=== PATIENT | male | born 1960 | race African-American/Black ===

== ENCOUNTER 2016-11-10 14:50 | Inpatient (IN) | payer SELFPAY ==
[~2016-11-10] VITALS: Ht 172.7 cm; Wt 56.7 kg
[2016-11-10 16:03] LABS: BASO % 0 % (0-3); EOS % 2 % (0-3); HEMATOCRIT 42.5 % (39.0-53.0); HEMOGLOBIN 13.9 g/dL (13.0-17.5); LYMPH # 0.7 x10^3/uL (1.0-4.8); LYMPH % 9 % (24-48); MEAN CORPUSCULAR HEMOGLOBIN 27 pg (25-35); MEAN CORPUSCULAR HGB CONC 33 g/dL (31-37); MEAN CORPUSCULAR VOLUME 82 fL (79-100); MONO % 14 % (0-9); NEUT % 75 % (31-73); PLATELET COUNT 172 x10^3/uL (140-400); RED BLOOD COUNT 5.17 x10^6/uL (4.30-5.70); RED CELL DISTRIBUTION WIDTH 13.2 % (11.5-14.5); WHITE BLOOD COUNT 7.9 x10^3/uL (4.0-11.0)
[2016-11-10] MEDS ORDERED: IV NORMAL SALINE 1000ML BAG 1,000 ML IV ONE (16:15)
[2016-11-10 16:34] LABS: CALCIUM 9.5 mg/dL (8.5-10.1); CREATININE 1.9 mg/dL (0.7-1.3); GFR 44.3; POTASSIUM 4.4 mmol/L (3.5-5.1)
[2016-11-10 16:40] LABS: ALBUMIN 3.6 g/dL (3.4-5.0); ALBUMIN/GLOBULIN RATIO 0.8 (1.0-1.7); TOTAL BILIRUBIN 0.4 mg/dL (0.2-1.0)
[2016-11-10] MEDS ORDERED: FENTANYL PF 100 MCG/2 ML VIAL. IV ONE (16:45)
--- NOTE | 2016-11-10 16:52 | PHYS DOC ---
Past Medical History Past Medical History: Diabetes-Type II, Hypertension, Kidney Stone, Pancreatitis Additional Past Medical Histor: IDDM Past Surgical History: No Surgical History Additional Information: PT REPORTS HE SMOKES APPROXIMATELY 3 CIGARETTES PER DAY. Alcohol Use: Sober Additional Information: PT REPORTS HE HAS BEEN SOBER FOR APPROXIMATELY 10 DAYS. Drug Use: None Adult General Chief Complaint Chief Complaint: MECHANICAL FALL HPI HPI 56-year-old homeless male was admitted a couple weeks ago to [facility] with acute pancreatitis. He spent several days in the hospital getting his pancreatitis better and was discharged home. Today he developed abdominal pain cramping and profuse diarrhea. He states the diarrhea was bad enough that he became lightheaded and fell in the restroom. He states he injured his right shoulder at that time. He complains now of mid abdominal discomfort similar to that when he had his pancreatitis. He denies any fever chills or sweats. He has not had any chest pain or palpitations. He has not felt short of breath. He didn 't hit his head has no headache no lateralizing neurologic weakness. [] Review of Systems Review of Systems Constitutional: Denies fever or chills [] Eyes: Denies change in visual acuity, redness, or eye pain [] HENT: Denies nasal congestion or sore throat [] Respiratory: Denies cough or shortness of breath [] Cardiovascular: No additional information not addressed in HPI [] GI: Per history of present illness [] : Denies dysuria or hematuria [] Musculoskeletal: Right shoulder pain] Integument: Denies rash or skin lesions [] Neurologic: Denies headache, focal weakness or sensory changes [] Endocrine: Denies polyuria or polydipsia [] Current Medications Current Medications Current Medications Medications (Trade) Dose Ordered Sig/Renee Start Time Stop Time Status Last Admin Dose Admin Fentanyl Citrate (Fentanyl 2ml Vial) 50 mcg 1X ONCE 11/10/16 16:45 11/10/16 16:46 DC 11/10/16 16:57 50 MCG Sodium Chloride (Iv Sodium Chloride 0.9% 1000ml Bag) 1,000 ml @ 1,000 mls/hr 1X ONCE 11/10/16 16:15 11/10/16 17:14 DC 11/10/16 16:38 1,000 MLS/HR Allergies Allergies Allergies Coded Allergies Type Severity Reaction Last Updated Verified No Known Drug Allergies 11/10/16 No Physical Exam Physical Exam Constitutional: Well developed, well nourished, no acute distress, non-toxic appearance. [] HENT: Normocephalic, atraumatic, bilateral external ears normal, oropharynx moist, no oral exudates, nose normal. [] Eyes: PERRLA, EOMI, conjunctiva normal, no discharge. [] Neck: Normal range of motion, no tenderness, supple, no stridor. [] Cardiovascular:Heart rate regular rhythm, no murmur [] Lungs & Thorax: Bilateral breath sounds clear to auscultation [] Abdomen: Bowel sounds normal, soft, no tenderness, no masses, no pulsatile masses. [] Skin: Warm, dry, no erythema, no rash. [] Back: No tenderness, no CVA tenderness. [] Extremities: No tenderness, no cyanosis, no clubbing, ROM intact, no edema. [] Neurologic: Alert and oriented X 3, normal motor function, normal sensory function, no focal deficits noted. [] Psychologic: Affect normal, judgement normal, mood normal. [] Current Patient Data Vital Signs Vital Signs Date Time Temp Pulse Resp B/P Pulse Ox O2 Delivery O2 Flow Rate FiO2 11/10/16 16:57 Room Air 11/10/16 16:19 85 12 94/60 96 11/10/16 15:17 97.8 97.8 Lab Values Laboratory Tests Test 11/10/16 15:15 11/10/16 15:40 11/10/16 17:47 Stool Occult Blood Positive (NEG) White Blood Count 7.9x10^3/uL (4.0-11.0) Red Blood Count 5.17x10^6/uL (4.30-5.70) Hemoglobin 13.9g/dL (13.0-17.5) Hematocrit 42.5% (39.0-53.0) Mean Corpuscular Volume 82fL (79-100) Mean Corpuscular Hemoglobin 27pg (25-35) Mean Corpuscular Hemoglobin Concent 33g/dL (31-37) Red Cell Distribution Width 13.2% (11.5-14.5) Platelet Count 172x10^3/uL (140-400) Neutrophils (%) (Auto) 75% (31-73) H Lymphocytes (%) (Auto) 9% (24-48) L Monocytes (%) (Auto) 14% (0-9) H Eosinophils (%) (Auto) 2% (0-3) Basophils (%) (Auto) 0% (0-3) Neutrophils # (Auto) 5.9x10^3uL (1.8-7.7) Lymphocytes # (Auto) 0.7x10^3/uL (1.0-4.8) L Monocytes # (Auto) 1.1x10^3/uL (0.0-1.1) Eosinophils # (Auto) 0.1x10^3/uL (0.0-0.7) Basophils # (Auto) 0.0x10^3/uL (0.0-0.2) Sodium Level 139mmol/L (136-145) Potassium Level 4.4mmol/L (3.5-5.1) Chloride Level 102mmol/L (98-107) Carbon Dioxide Level 24mmol/L (21-32) Anion Gap 13 (6-14) Blood Urea Nitrogen 28mg/dL (8-26) H Creatinine 1.9mg/dL (0.7-1.3) H Estimated GFR (Cockcroft-Gault) 44.3 BUN/Creatinine Ratio 15 (6-20) Glucose Level 299mg/dL (70-99) H Calcium Level 9.5mg/dL (8.5-10.1) Total Bilirubin 0.4mg/dL (0.2-1.0) Aspartate Amino Transferase (AST) 41U/L (15-37) H Alanine Aminotransferase (ALT) 70U/L (16-63) H Alkaline Phosphatase 102U/L (46-116) Total Protein 8.0g/dL (6.4-8.2) Albumin 3.6g/dL (3.4-5.0) Albumin/Globulin Ratio 0.8 (1.0-1.7) L Lipase 97U/L (73-393) Urine Collection Type U cath Urine Color Yellow Urine Clarity Clear Urine pH 5.0 Urine Specific [place] 1.025 Urine Protein Negativemg/dL (NEG-TRACE) Urine Glucose (UA) >=1000mg/dL (NEG) Urine Ketones (Stick) Negativemg/dL (NEG) Urine Blood Negative (NEG) Urine Nitrite Negative (NEG) Urine Bilirubin Negative (NEG) Urine Urobilinogen Dipstick 0.2mg/dL (0.2 mg/dL) Urine Leukocyte Esterase Negative (NEG) Urine RBC 0/HPF (0-2) Urine WBC 0/HPF (0-4) Urine Squamous Epithelial Cells Occ/LPF Urine Transitional Epithelial Cells Occ/LPF Urine Bacteria 0/HPF (0-FEW) Urine Hyaline Casts Moderate/HPF Urine Mucus Mod/LPF Laboratory Tests 11/10/16 15:40 Laboratory Tests 11/10/16 15:40 EKG EKG [] Radiology/Procedures Radiology/Procedures [] Course & Med Decision Making Course & Med Decision Making Pertinent Labs and Imaging studies reviewed. (See chart for details) [ED course: Evaluation reveals a 56-year-old male who appears acutely ill. Initially his blood pressure was in the 80s systolic and he felt lightheaded. He was given IV fluids and pain medicine during her stay in the [facility] from which did help his blood pressure improved. He had a large malodorous diarrhea bowel movement. Dragon Disclaimer Dragon Disclaimer This electronic medical record was generated, in whole or in part, using a voice recognition dictation system. Departure Departure Impression: Primary Impression: Diarrhea Additional Impression: Renal insufficiency Disposition: ADMITTED INPATIENT Admitting Physician: Other (Reusch) Condition: IMPROVED Referrals: NO PCP (PCP) Problem Qualifiers Primary Impression: Diarrhea Diarrhea type: presumed infectious Qualified Code: A09 - Infectious gastroenteritis and colitis, unspecified LUIS DIAMOND DO Nov 10, 2016 16:52
--- NOTE | 2016-11-10 17:43 | RAD ---
PROCEDURE CT abdomen and pelvis without intravenous contrast. HISTORY Generalized abdominal pain, history of kidney stone. TECHNIQUE Helical CT of the abdomen and pelvis was performed without intravenous or oral contrast. Exposure: One or more of the following individualized dose reduction techniques were utilized for this examination: 1. Automated exposure control. 2. Adjustment of the mA and/or kV according to patient size. 3. Use of iterative reconstruction technique. COMPARISON None. FINDINGS Evaluation of solid organs is limited by lack of intravenous contrast. Evaluation of enteric structures may be limited by lack of oral contrast. Images of lower chest demonstrate mild bronchiectasis in the right lower lobe. Calcified hepatic granulomata are present. Spleen and bilateral adrenal glands are unremarkable. Gallbladder is unremarkable. Pancreas demonstrates areas of coarse calcifications, compatible with changes of chronic pancreatitis. No acute pancreatitis is identified. Bilateral kidneys and ureters are free of stone or obstruction. Urinary bladder wall may be mildly thickened measuring 5 millimeters in thickness. Aortic atherosclerosis is seen. No bowel obstruction or inflammation is identified. Appendix is without inflammation. No free air for free fluid is seen in the abdomen or pelvis. Degenerative changes are present in spine. IMPRESSION 1. No evidence urinary stone. No acute inflammatory process identified in the abdomen. 2. Question mild wall thickening of the urinary bladder, nonspecific. Correlate for any symptoms of cystitis. 3. Mild right lower lobe bronchiectasis. Electronically signed by: Jarek Jacobs MD (Nov 10, 2016 17:41:59)
[2016-11-10 17:50] LABS: NEG OBC FOB NEG; POS OBC FOB POS
[2016-11-10 18:06] LABS: BILIRUBIN,URINE NEGATIVE (NEG); GLUCOSE,URINE >=1000 mg/dL (NEG); NITRITE,URINE NEGATIVE (NEG); PROTEIN,URINE NEGATIVE (NEG-TRACE); UROBILINOGEN,URINE 0.2 mg/dL (0.2 mg/dL)
[2016-11-10 18:16] LABS: RBC,URINE 0 /HPF (0-2); WBC,URINE 0 /HPF (0-4)
[2016-11-10 18:17] LABS: BACTERIA,URINE 0 /HPF (0-FEW); SQUAMOUS EPITHELIAL CELL,UR OCC /LPF
[2016-11-10] MEDS ORDERED: ACETAMINOPHEN 325 MG TABLET. PO PRN (18:45)
[2016-11-10] MEDS ORDERED: ONDANSETRON PF 4 MG/2 ML VIAL. IV PRN (18:45)
[2016-11-10 20:28] VITALS: BP 110/72
[2016-11-10] MEDS ORDERED: INSU100C4 SQ (20:48)
[2016-11-10] MEDS ORDERED: INSU100V13 SQ (20:48)
[2016-11-10] MEDS: FENTANYL PF 100 MCG/2 ML VIAL. IV PRN (22:59)
[2016-11-10] MEDS: IV NORMAL SALINE 1000ML BAG 1,000 ML IV SCH (22:59)
[2016-11-10 23:06] VITALS: BP 124/75
[2016-11-10] MEDS ORDERED: DEXTROSE 50% 25 GM / 50ML DISP.SYRIN. IV PRN (23:45)
--- NOTE | 2016-11-11 01:30 | HP ---
ADMIT DATE: 11/10/2016 CHIEF COMPLAINT: Right-sided abdominal pain. HISTORY OF PRESENT ILLNESS: The patient is a 56-year-old -[place] gentleman with a history of alcoholism and recent admission for pancreatitis at [facility]. He had been discharged to the [facility] in [facility] and now presents with right-sided abdominal pain. He thinks this is same diagnosis, although pain is completely different. He relates that pain is on the right side going through to his back and radiating to his shoulder. He states he actually has a history of kidney stones also on the right. He was not aware that this can recur. PAST MEDICAL HISTORY: Alcoholism, pancreatitis, recent hypertension, diabetes. FAMILY HISTORY: Positive for ETOH as well as hypertension. SOCIAL HISTORY: Currently living at the [facility], smokes 2 cigarettes a day, has once again quit alcohol since his recent bout of pancreatitis. Denies any other drugs. ALLERGIES: No known drug allergies. HOME MEDICATIONS: Reconciled with MAR. REVIEW OF SYSTEMS: He relates that a pain medication does not last long enough to keep him comfortable. He denies any nausea or vomiting. Denies any hematuria. PHYSICAL EXAMINATION: VITAL SIGNS: From today show a blood pressure of 124/75, heart rate of 88, respiratory rate at 18. He is afebrile. GENERAL: This is a well-nourished 56-year-old -[place] gentleman, alert and oriented, in no acute distress. HEENT: Shows no scleral icterus. NECK: Supple. LUNGS: Clear to auscultation bilaterally. HEART: Regular rate and rhythm. ABDOMEN: Positive bowel sounds. Tenderness to palpation in the right upper quadrant, significant pain to auscultation of his right flank. EXTREMITIES: Show no edema. SKIN: Warm, soft and dry. LABORATORY DATA: CBC with a WBC of 7.9, hemoglobin 13.9, platelets of 172. BUN and creatinine 28 and 1.9, normal electrolytes. Glucose at 299. AST, ALT 41 and 70. Lipase at 97. Urine shows greater than 1000 glucose, no blood, no WBC. Occult stool is positive. IMAGING: CT of the abdomen and pelvis shows no evidence of urinary stone, no acute inflammatory process identified in the abdomen, nonspecific mild wall thickening of the urinary bladder is noted. ASSESSMENT AND PLAN: The patient is a 56-year-old -[place] gentleman with abdominal pain/flank pain. His CT did not identify a renal stone. This, however, does not necessarily rule it out. We will obtain ultrasound of the kidneys in a.m. Try to get pain control achieved with IV medications for now. The patient does have OB positive stools which may be unrelated to current presentation. However, cannot rule out potential ischemic gut with OB positive stool only, no elvie blood at this time. We will keep n.p.o. Monitor closely. If any suspicion, we will involve GI service. Diabetes mellitus is poorly controlled. He does have Levemir on an outpatient basis. We will hold medication in favor of insulin sliding scale while he remains n.p.o. The patient relates that he has hypertension as well. However, no home medications are listed and current blood pressures are well controlled. We will monitor for the time being. I suspect that he may be on low dose lisinopril for renal protection with diabetes. HARINDER LI MD DR: RJ/soham JOB#: [id number] / [id number] SADIE
[2016-11-11 03:15] VITALS: BP 121/78
--- NOTE | 2016-11-11 04:56 | ACF ---
Admission Forms Criteria ABDOMINAL PAIN Clinical Indications for Admission to Inpatient Care (Place 'X' for any and all applicable criteria): Admission is indicated for ANY ONE of the following(1)(2)(3)(4)(5): [X]I. Inpatient admission required rather than observation care (Also use Abdominal Pain: Observation Care, as appropriate) because of ANY ONE of the following: [ ]a) Severe pain requiring acute inpatient management [X]b) Identification of etiology/finding that requires inpatient care (eg, aortic dissection, free air) [ ]c) Absent bowel sounds with complete ileus(6) [ ]d) Suspected toxic megacolon [ ]e) Severe electrolyte abnormalities requiring inpatient care [ ]f) High fever or infection requiring inpatient admission as indicated by ANY ONE of following(7)(8): [ ] i) Appropriate outpatient or observational care antimicrobial treatment unavailable, not effective, or not feasible [ ] ii) Documented bacteremia [ ] iii) Temperature > 104.9 degrees F (oral) [ ] iv) T >103.1 F (oral) or < 96.8 F(rectal) that does not respond to all emergency treatment measures [ ]g) Signs of intestinal obstruction [B] [ ]h) Hemodynamic instability [ ]i) IV fluid to replace significant ongoing losses (greater than 3 L/m2 per day) (12)(13) [ ]j) Percutaneous or open drainage (eg, abscess, biliary tract ) procedures [ ]k) Parenteral nutrition regimen that must be implemented on inpatient basis [ ]l) Other condition,treatment or monitoring requiring inpatient admission. [ ]II. Peritoneal signs present [ ]III. Surgery needed that cannot be performed on an ambulatory basis. [ ]IV. Evaluation requires patient to not eat or drink for extended period ( eg, more than 24 hours). [ ]V. Contraindications and/or Inappropriate clinical situations for Observational Care in patients with abdominal pain, when ANY ONE of the following is required: [ ]a) Thorough evaluation is required to prevent catastrophic events due to delays in diagnosing (e.g.Mesenteric ischemia) 1,3 [ ]b) Patient with severe pathology or with chronic symptoms unlikely to improve in the ED stay (3) [ ]. General contraindications and/or Inappropriate clinical situations for Observational Care in patients with abdominal pain, when ANY ONE of the following is required: [ ]a) Prediction of prolongation of LOS based on ANY ONE of the following may be considered as a contraindication for observational care 2, 3, 4, 5, 6, 7, 8, 9, 10, 11 [ ]i) Age > 65 yrs. [ ]ii) Patient arriving by ambulance [ ]iii) Patient with high acuity [ ]iv) Patient requiring vital sign monitoring [ ]v) Patient on IV medication [ ]b) Systolic blood pressures 180mmHg 3,12 [ ]c) Patient with altered mental status including delirium and other alteration of consciousness, (3) [ ]d) Patient whose discharge disposition will be to a group home home or rehabilitation home should not be managed in Emergency Department Observation Unit. CMS rule requires 3 days hospital stay before such placement.3,13 [ ]e) Patient with failure to thrive due to broad array of etiologies 3,16,17 [ ]f) Inability to ambulate 3,14 Extended stay beyond goal length of stay may be needed for(2)(3): [ ]a) Persistent abdominal pain with suspected intra-abdominal process [ ]b) Diagnosed condition requiring continued stay (e.g., pancreatitis, complicated diverticulitis) [ ]c) Surgery (e.g., colectomy) The original [facility] content created by [employer] has been revised. The portions of the content which have been revised are identified through the use of italic text or in bold, and [email or web address] has neither reviewed nor approved the modified material.All other unmodified content is copyright [facility]. Please see references footnoted in the original [facility] edition 2015 Admission Criteria Met?: Yes ALEIDA JORDAN Nov 11, 2016 04:56
[2016-11-11 06:45] LABS: BASO % 0 % (0-3); EOS % 6 % (0-3); HEMATOCRIT 39.2 % (39.0-53.0); HEMOGLOBIN 12.3 g/dL (13.0-17.5); LYMPH % 37 % (24-48); MEAN CORPUSCULAR HEMOGLOBIN 27 pg (25-35); MEAN CORPUSCULAR HGB CONC 32 g/dL (31-37); MEAN CORPUSCULAR VOLUME 85 fL (79-100); MONO % 14 % (0-9); NEUT % 43 % (31-73); PLATELET COUNT 140 x10^3/uL (140-400); RED BLOOD COUNT 4.63 x10^6/uL (4.30-5.70); RED CELL DISTRIBUTION WIDTH 13.3 % (11.5-14.5); WHITE BLOOD COUNT 5.5 x10^3/uL (4.0-11.0)
[2016-11-11 07:00] VITALS: BP 131/86
[2016-11-11 07:12] LABS: ALBUMIN 2.9 g/dL (3.4-5.0); ALBUMIN/GLOBULIN RATIO 0.9 (1.0-1.7); CALCIUM 8.4 mg/dL (8.5-10.1); CREATININE 1.1 mg/dL (0.7-1.3); GFR 83.2; POTASSIUM 4.8 mmol/L (3.5-5.1); TOTAL BILIRUBIN 0.4 mg/dL (0.2-1.0); TOTAL PROTEIN 6.3 g/dL (6.4-8.2)
--- NOTE | 2016-11-11 08:14 | PDOC ---
PROGRESS NOTES Chief Complaint Chief Complaint cc: abdominal pain A/P Abdominal pain with hx of recent alcoholic pancreatitis. DM 2 with hyperglycemia Plan Pain control NPO IV hydration GI consulted. Monitor electrolytes labs reviwed. Vitals Vitals Vital Signs Date Time Temp Pulse Resp B/P Pulse Ox O2 Delivery O2 Flow Rate FiO2 11/11/16 07:00 97.8 74 18 131/86 99 Room Air 97.8 Physical Exam General: Alert, Oriented X3 Heart: Normal S1, Normal S2 Lungs: Clear Abdomen: Normal bowel sounds, Soft Extremities: No clubbing Skin: No rashes Labs LABS Laboratory Tests Test 11/10/16 15:15 11/10/16 15:40 11/10/16 17:47 11/11/16 05:50 Stool Occult Blood Positive (NEG) White Blood Count 7.9x10^3/uL (4.0-11.0) 5.5x10^3/uL (4.0-11.0) Red Blood Count 5.17x10^6/uL (4.30-5.70) 4.63x10^6/uL (4.30-5.70) Hemoglobin 13.9g/dL (13.0-17.5) 12.3g/dL (13.0-17.5) Hematocrit 42.5% (39.0-53.0) 39.2% (39.0-53.0) Mean Corpuscular Volume 82fL (79-100) 85fL (79-100) Mean Corpuscular Hemoglobin 27pg (25-35) 27pg (25-35) Mean Corpuscular Hemoglobin Concent 33g/dL (31-37) 32g/dL (31-37) Red Cell Distribution Width 13.2% (11.5-14.5) 13.3% (11.5-14.5) Platelet Count 172x10^3/uL (140-400) 140x10^3/uL (140-400) Neutrophils (%) (Auto) 75% (31-73) 43% (31-73) Lymphocytes (%) (Auto) 9% (24-48) 37% (24-48) Monocytes (%) (Auto) 14% (0-9) 14% (0-9) Eosinophils (%) (Auto) 2% (0-3) 6% (0-3) Basophils (%) (Auto) 0% (0-3) 0% (0-3) Neutrophils # (Auto) 5.9x10^3uL (1.8-7.7) 2.4x10^3uL (1.8-7.7) Lymphocytes # (Auto) 0.7x10^3/uL (1.0-4.8) 2.0x10^3/uL (1.0-4.8) Monocytes # (Auto) 1.1x10^3/uL (0.0-1.1) 0.8x10^3/uL (0.0-1.1) Eosinophils # (Auto) 0.1x10^3/uL (0.0-0.7) 0.3x10^3/uL (0.0-0.7) Basophils # (Auto) 0.0x10^3/uL (0.0-0.2) 0.0x10^3/uL (0.0-0.2) Sodium Level 139mmol/L (136-145) 144mmol/L (136-145) Potassium Level 4.4mmol/L (3.5-5.1) 4.8mmol/L (3.5-5.1) Chloride Level 102mmol/L (98-107) 111mmol/L (98-107) Carbon Dioxide Level 24mmol/L (21-32) 23mmol/L (21-32) Anion Gap 13 (6-14) 10 (6-14) Blood Urea Nitrogen 28mg/dL (8-26) 21mg/dL (8-26) Creatinine 1.9mg/dL (0.7-1.3) 1.1mg/dL (0.7-1.3) Estimated GFR (Cockcroft-Gault) 44.3 83.2 BUN/Creatinine Ratio 15 (6-20) 19 (6-20) Glucose Level 299mg/dL (70-99) 146mg/dL (70-99) Calcium Level 9.5mg/dL (8.5-10.1) 8.4mg/dL (8.5-10.1) Total Bilirubin 0.4mg/dL (0.2-1.0) 0.4mg/dL (0.2-1.0) Aspartate Amino Transf (AST/SGOT) 41U/L (15-37) 30U/L (15-37) Alanine Aminotransferase (ALT/SGPT) 70U/L (16-63) 50U/L (16-63) Alkaline Phosphatase 102U/L (46-116) 61U/L (46-116) Total Protein 8.0g/dL (6.4-8.2) 6.3g/dL (6.4-8.2) Albumin 3.6g/dL (3.4-5.0) 2.9g/dL (3.4-5.0) Albumin/Globulin Ratio 0.8 (1.0-1.7) 0.9 (1.0-1.7) Lipase 97U/L (73-393) Urine Collection Type U cath Urine Color Yellow Urine Clarity Clear Urine pH 5.0 Urine Specific [place] 1.025 Urine Protein Negativemg/dL (NEG-TRACE) Urine Glucose (UA) >=1000mg/dL (NEG) Urine Ketones (Stick) Negativemg/dL (NEG) Urine Blood Negative (NEG) Urine Nitrite Negative (NEG) Urine Bilirubin Negative (NEG) Urine Urobilinogen Dipstick 0.2mg/dL (0.2 mg/dL) Urine Leukocyte Esterase Negative (NEG) Urine RBC 0/HPF (0-2) Urine WBC 0/HPF (0-4) Urine Squamous Epithelial Cells Occ/LPF Urine Transitional Epithelial Cells Occ/LPF Urine Bacteria 0/HPF (0-FEW) Urine Hyaline Casts Moderate/HPF Urine Mucus Mod/LPF Assessment and Plan Assessmemt and Plan Problems Medical Problems: (1) Dehydration Status: Acute (2) Diarrhea Status: Acute (3) Renal insufficiency Status: Acute Problems: Comment Review of Relevant I have reviewed the following items karly (where applicable) has been applied. Labs Laboratory Tests Test 11/10/16 15:15 11/10/16 15:40 11/10/16 17:47 11/11/16 05:50 Stool Occult Blood Positive (NEG) White Blood Count 7.9x10^3/uL (4.0-11.0) 5.5x10^3/uL (4.0-11.0) Red Blood Count 5.17x10^6/uL (4.30-5.70) 4.63x10^6/uL (4.30-5.70) Hemoglobin 13.9g/dL (13.0-17.5) 12.3g/dL (13.0-17.5) Hematocrit 42.5% (39.0-53.0) 39.2% (39.0-53.0) Mean Corpuscular Volume 82fL (79-100) 85fL (79-100) Mean Corpuscular Hemoglobin 27pg (25-35) 27pg (25-35) Mean Corpuscular Hemoglobin Concent 33g/dL (31-37) 32g/dL (31-37) Red Cell Distribution Width 13.2% (11.5-14.5) 13.3% (11.5-14.5) Platelet Count 172x10^3/uL (140-400) 140x10^3/uL (140-400) Neutrophils (%) (Auto) 75% (31-73) 43% (31-73) Lymphocytes (%) (Auto) 9% (24-48) 37% (24-48) Monocytes (%) (Auto) 14% (0-9) 14% (0-9) Eosinophils (%) (Auto) 2% (0-3) 6% (0-3) Basophils (%) (Auto) 0% (0-3) 0% (0-3) Neutrophils # (Auto) 5.9x10^3uL (1.8-7.7) 2.4x10^3uL (1.8-7.7) Lymphocytes # (Auto) 0.7x10^3/uL (1.0-4.8) 2.0x10^3/uL (1.0-4.8) Monocytes # (Auto) 1.1x10^3/uL (0.0-1.1) 0.8x10^3/uL (0.0-1.1) Eosinophils # (Auto) 0.1x10^3/uL (0.0-0.7) 0.3x10^3/uL (0.0-0.7) Basophils # (Auto) 0.0x10^3/uL (0.0-0.2) 0.0x10^3/uL (0.0-0.2) Sodium Level 139mmol/L (136-145) 144mmol/L (136-145) Potassium Level 4.4mmol/L (3.5-5.1) 4.8mmol/L (3.5-5.1) Chloride Level 102mmol/L (98-107) 111mmol/L (98-107) Carbon Dioxide Level 24mmol/L (21-32) 23mmol/L (21-32) Anion Gap 13 (6-14) 10 (6-14) Blood Urea Nitrogen 28mg/dL (8-26) 21mg/dL (8-26) Creatinine 1.9mg/dL (0.7-1.3) 1.1mg/dL (0.7-1.3) Estimated GFR (Cockcroft-Gault) 44.3 83.2 BUN/Creatinine Ratio 15 (6-20) 19 (6-20) Glucose Level 299mg/dL (70-99) 146mg/dL (70-99) Calcium Level 9.5mg/dL (8.5-10.1) 8.4mg/dL (8.5-10.1) Total Bilirubin 0.4mg/dL (0.2-1.0) 0.4mg/dL (0.2-1.0) Aspartate Amino Transf (AST/SGOT) 41U/L (15-37) 30U/L (15-37) Alanine Aminotransferase (ALT/SGPT) 70U/L (16-63) 50U/L (16-63) Alkaline Phosphatase 102U/L (46-116) 61U/L (46-116) Total Protein 8.0g/dL (6.4-8.2) 6.3g/dL (6.4-8.2) Albumin 3.6g/dL (3.4-5.0) 2.9g/dL (3.4-5.0) Albumin/Globulin Ratio 0.8 (1.0-1.7) 0.9 (1.0-1.7) Lipase 97U/L (73-393) Urine Collection Type U cath Urine Color Yellow Urine Clarity Clear Urine pH 5.0 Urine Specific [place] 1.025 Urine Protein Negativemg/dL (NEG-TRACE) Urine Glucose (UA) >=1000mg/dL (NEG) Urine Ketones (Stick) Negativemg/dL (NEG) Urine Blood Negative (NEG) Urine Nitrite Negative (NEG) Urine Bilirubin Negative (NEG) Urine Urobilinogen Dipstick 0.2mg/dL (0.2 mg/dL) Urine Leukocyte Esterase Negative (NEG) Urine RBC 0/HPF (0-2) Urine WBC 0/HPF (0-4) Urine Squamous Epithelial Cells Occ/LPF Urine Transitional Epithelial Cells Occ/LPF Urine Bacteria 0/HPF (0-FEW) Urine Hyaline Casts Moderate/HPF Urine Mucus Mod/LPF Laboratory Tests Test 11/10/16 15:15 11/10/16 15:40 11/10/16 17:47 11/11/16 05:50 Stool Occult Blood Positive (NEG) White Blood Count 7.9x10^3/uL (4.0-11.0) 5.5x10^3/uL (4.0-11.0) Red Blood Count 5.17x10^6/uL (4.30-5.70) 4.63x10^6/uL (4.30-5.70) Hemoglobin 13.9g/dL (13.0-17.5) 12.3g/dL (13.0-17.5) Hematocrit 42.5% (39.0-53.0) 39.2% (39.0-53.0) Mean Corpuscular Volume 82fL (79-100) 85fL (79-100) Mean Corpuscular Hemoglobin 27pg (25-35) 27pg (25-35) Mean Corpuscular Hemoglobin Concent 33g/dL (31-37) 32g/dL (31-37) Red Cell Distribution Width 13.2% (11.5-14.5) 13.3% (11.5-14.5) Platelet Count 172x10^3/uL (140-400) 140x10^3/uL (140-400) Neutrophils (%) (Auto) 75% (31-73) 43% (31-73) Lymphocytes (%) (Auto) 9% (24-48) 37% (24-48) Monocytes (%) (Auto) 14% (0-9) 14% (0-9) Eosinophils (%) (Auto) 2% (0-3) 6% (0-3) Basophils (%) (Auto) 0% (0-3) 0% (0-3) Neutrophils # (Auto) 5.9x10^3uL (1.8-7.7) 2.4x10^3uL (1.8-7.7) Lymphocytes # (Auto) 0.7x10^3/uL (1.0-4.8) 2.0x10^3/uL (1.0-4.8) Monocytes # (Auto) 1.1x10^3/uL (0.0-1.1) 0.8x10^3/uL (0.0-1.1) Eosinophils # (Auto) 0.1x10^3/uL (0.0-0.7) 0.3x10^3/uL (0.0-0.7) Basophils # (Auto) 0.0x10^3/uL (0.0-0.2) 0.0x10^3/uL (0.0-0.2) Sodium Level 139mmol/L (136-145) 144mmol/L (136-145) Potassium Level 4.4mmol/L (3.5-5.1) 4.8mmol/L (3.5-5.1) Chloride Level 102mmol/L (98-107) 111mmol/L (98-107) Carbon Dioxide Level 24mmol/L (21-32) 23mmol/L (21-32) Anion Gap 13 (6-14) 10 (6-14) Blood Urea Nitrogen 28mg/dL (8-26) 21mg/dL (8-26) Creatinine 1.9mg/dL (0.7-1.3) 1.1mg/dL (0.7-1.3) Estimated GFR (Cockcroft-Gault) 44.3 83.2 BUN/Creatinine Ratio 15 (6-20) 19 (6-20) Glucose Level 299mg/dL (70-99) 146mg/dL (70-99) Calcium Level 9.5mg/dL (8.5-10.1) 8.4mg/dL (8.5-10.1) Total Bilirubin 0.4mg/dL (0.2-1.0) 0.4mg/dL (0.2-1.0) Aspartate Amino Transf (AST/SGOT) 41U/L (15-37) 30U/L (15-37) Alanine Aminotransferase (ALT/SGPT) 70U/L (16-63) 50U/L (16-63) Alkaline Phosphatase 102U/L (46-116) 61U/L (46-116) Total Protein 8.0g/dL (6.4-8.2) 6.3g/dL (6.4-8.2) Albumin 3.6g/dL (3.4-5.0) 2.9g/dL (3.4-5.0) Albumin/Globulin Ratio 0.8 (1.0-1.7) 0.9 (1.0-1.7) Lipase 97U/L (73-393) Urine Collection Type U cath Urine Color Yellow Urine Clarity Clear Urine pH 5.0 Urine Specific [place] 1.025 Urine Protein Negativemg/dL (NEG-TRACE) Urine Glucose (UA) >=1000mg/dL (NEG) Urine Ketones (Stick) Negativemg/dL (NEG) Urine Blood Negative (NEG) Urine Nitrite Negative (NEG) Urine Bilirubin Negative (NEG) Urine Urobilinogen Dipstick 0.2mg/dL (0.2 mg/dL) Urine Leukocyte Esterase Negative (NEG) Urine RBC 0/HPF (0-2) Urine WBC 0/HPF (0-4) Urine Squamous Epithelial Cells Occ/LPF Urine Transitional Epithelial Cells Occ/LPF Urine Bacteria 0/HPF (0-FEW) Urine Hyaline Casts Moderate/HPF Urine Mucus Mod/LPF Medications Current Medications Sodium Chloride (Iv Sodium Chloride 0.9% 1000ml Bag) 1,000 ml @ 1,000 mls/hr 1X ONCE IV Last administered on 11/10/16 16:38; Start 11/10/16 at 16:15; Stop 11/10/16 at 17:14; Status DC Fentanyl Citrate (Fentanyl 2ml Vial) 50 mcg 1X ONCE IV Last administered on 16:57; Start 11/10/16 at 16:45; Stop 11/10/16 at 16:46; Status DC Ondansetron HCl (Zofran) 4 mg PRN Q8HRS PRN IV NAUSEA/VOMITING; Start 11/10/16 at 18:45; Stop 11/11/16 at 18:44 Fentanyl Citrate 50 mcg 50 mcg PRN Q2HR PRN IV PAIN Last administered on 22:59; Start 11/10/16 at 18:45; Stop 11/11/16 at 18:44 Sodium Chloride (Iv Sodium Chloride 0.9% 1000ml Bag) 1,000 ml @ 150 mls/hr Q6H40M IV Last administered on 11/10/16 22:59; Start 11/10/16 at 19:00; Stop 11/11/16 at 18:59 Acetaminophen (Tylenol) 650 mg PRN Q4HRS PRN PO FEVER; Start 11/10/16 at 18:45 ; Stop 11/11/16 at 18:44 Insulin Aspart (Novolog) 0-9 UNITS TIDWMEALS SQ ; Start 11/11/16 at 08:00 Dextrose 12.5 gm PRN Q15MIN PRN IV SEE COMMENTS; Start 11/10/16 at 23:45 Active Scripts Active Reported Novolog (Insulin Aspart) 100 Unit/1 Ml Cartridge 3 Unit SQ TIDBFRMEAL Levemir (Insulin Detemir) 100 Unit/1 Ml Vial 20 Unit SQ QHS Vitals/I & O Vital Sign - Last 24 Hours 11/10/16 11/10/16 11/10/16 11/10/16 15:17 15:30 15:49 16:19 Temp 97.8 97.8 Pulse 92 87 84 85 Resp 20 20 13 12 B/P 87/58 96/64 101/65 94/60 Pulse Ox 100 98 95 96 O2 Delivery Room Air Room Air Room Air Room Air 11/10/16 11/10/16 11/10/16 11/10/16 16:49 16:57 17:29 17:33 Pulse 84 83 80 Resp 14 17 B/P 105/69 92/61 101/65 Pulse Ox 96 97 O2 Delivery Room Air Room Air Room Air 11/10/16 11/10/16 11/10/16 11/10/16 18:44 19:14 20:28 20:28 Temp 98.5 98.5 98.5 98.5 Pulse 82 80 93 93 Resp 11 11 16 16 B/P 98/62 105/64 110/72 110/72 Pulse Ox 94 94 O2 Delivery Room Air Room Air Room Air Room Air 11/10/16 11/10/16 11/11/16 11/11/16 22:59 23:06 03:15 07:00 Temp 98.3 98.6 97.8 98.3 98.6 97.8 Pulse 88 76 74 Resp 20 18 18 18 B/P 124/75 121/78 131/86 Pulse Ox 97 98 99 O2 Delivery Room Air Room Air Room Air Room Air Intake and Output 11/10/16 11/10/16 11/11/16 15:00 23:00 07:00 Intake Total 1000 ml 200 ml Output Total 400 ml Balance 1000 ml -200 ml LEWIS SAAVEDRA MD Nov 11, 2016 08:14
[2016-11-11] MEDS: INSULIN ASPART 300 UNITS/3 ML INSULN.PEN SQ SCH ×3 (08:19→17:00)
[2016-11-11] MEDS: FENTANYL PF 100 MCG/2 ML VIAL. IV PRN (08:25)
--- NOTE | 2016-11-11 08:32 | RAD ---
Right shoulder, 3 views, 11/10/2016: History: Right shoulder pain No fracture or dislocation is identified. There are mild degenerative changes at AC joint. There are cystic and sclerotic changes at rotator cuff insertion sites on the greater tuberosity. The periarticular soft tissues are unremarkable. IMPRESSION: 1. Mild degenerative change. 2. No acute bony abnormality is detected.
--- NOTE | 2016-11-11 09:35 | PDOC2 ---
GI CONSULT Reason For Consult: Abd pain HPI: HPI: 56 y/o AA male w/ two recent admission at [facility] for his first episode of alcoholic pancreatitis. He previously drank 7-8 16oz beers daily but has been sober for about 2 weeks. Lipase and LFTs WNL here, CT w/o contrast shows evidence of chronic pancreatitis w/ normal gallbladder. He tells me he currently has no abdominal pain. Has been eating okay w/o n/v. Had some diarrhea at [facility] that has recurred intermittently for the past 2 weeks; he describes a mixture of loose and formed stools. Hemoccult was positive here, but he denies hematochezia or melena. Yesterday, he describes "almost falling" w/ the feeling that "everything was going dark" while he was walking down a hallway. Denies trauma but has lower back pain (h/o this intermittently, untreated) and right shoulder pain w/ movement. Denies reflux/heartburn. No weight loss. No previous EGD, unsure re: previous colonoscopy. PMH: PMH: alcoholism, pancreatitis, HTN, DM FH: Family History: No pertinent hx (denies GI cancers, ID, gallbladder disease, pancreatitis, liver disease) Social History: Smoke: <1 pack per day ALCOHOL: heavy (7-8 16oz cans of beer daily, sober x 2 weeks) Drugs: None ROS: GEN: Denies fevers, chills, sweats HEENT: Denies blurred vision, sore throat CV: Denies chest pain RESP: Denies shortness of air, cough GI: Per HPI : Denies hematuria, dysuria ENDO: Denies weight changes NEURO: Denies confusion, dizziness MSK: +weakness SKIN: Denies jaundice, pruritus VItals: Vitals: Vital Signs Date Time Temp Pulse Resp B/P Pulse Ox O2 Delivery O2 Flow Rate FiO2 11/11/16 08:25 Room Air 11/11/16 07:00 97.8 74 18 131/86 99 97.8 Labs: Labs: Laboratory Tests Test 11/10/16 15:15 11/10/16 15:40 11/10/16 17:47 11/11/16 05:50 Stool Occult Blood Positive (NEG) White Blood Count 7.9x10^3/uL (4.0-11.0) 5.5x10^3/uL (4.0-11.0) Red Blood Count 5.17x10^6/uL (4.30-5.70) 4.63x10^6/uL (4.30-5.70) Hemoglobin 13.9g/dL (13.0-17.5) 12.3g/dL (13.0-17.5) Hematocrit 42.5% (39.0-53.0) 39.2% (39.0-53.0) Mean Corpuscular Volume 82fL (79-100) 85fL (79-100) Mean Corpuscular Hemoglobin 27pg (25-35) 27pg (25-35) Mean Corpuscular Hemoglobin Concent 33g/dL (31-37) 32g/dL (31-37) Red Cell Distribution Width 13.2% (11.5-14.5) 13.3% (11.5-14.5) Platelet Count 172x10^3/uL (140-400) 140x10^3/uL (140-400) Neutrophils (%) (Auto) 75% (31-73) 43% (31-73) Lymphocytes (%) (Auto) 9% (24-48) 37% (24-48) Monocytes (%) (Auto) 14% (0-9) 14% (0-9) Eosinophils (%) (Auto) 2% (0-3) 6% (0-3) Basophils (%) (Auto) 0% (0-3) 0% (0-3) Neutrophils # (Auto) 5.9x10^3uL (1.8-7.7) 2.4x10^3uL (1.8-7.7) Lymphocytes # (Auto) 0.7x10^3/uL (1.0-4.8) 2.0x10^3/uL (1.0-4.8) Monocytes # (Auto) 1.1x10^3/uL (0.0-1.1) 0.8x10^3/uL (0.0-1.1) Eosinophils # (Auto) 0.1x10^3/uL (0.0-0.7) 0.3x10^3/uL (0.0-0.7) Basophils # (Auto) 0.0x10^3/uL (0.0-0.2) 0.0x10^3/uL (0.0-0.2) Sodium Level 139mmol/L (136-145) 144mmol/L (136-145) Potassium Level 4.4mmol/L (3.5-5.1) 4.8mmol/L (3.5-5.1) Chloride Level 102mmol/L (98-107) 111mmol/L (98-107) Carbon Dioxide Level 24mmol/L (21-32) 23mmol/L (21-32) Anion Gap 13 (6-14) 10 (6-14) Blood Urea Nitrogen 28mg/dL (8-26) 21mg/dL (8-26) Creatinine 1.9mg/dL (0.7-1.3) 1.1mg/dL (0.7-1.3) Estimated GFR (Cockcroft-Gault) 44.3 83.2 BUN/Creatinine Ratio 15 (6-20) 19 (6-20) Glucose Level 299mg/dL (70-99) 146mg/dL (70-99) Calcium Level 9.5mg/dL (8.5-10.1) 8.4mg/dL (8.5-10.1) Total Bilirubin 0.4mg/dL (0.2-1.0) 0.4mg/dL (0.2-1.0) Aspartate Amino Transf (AST/SGOT) 41U/L (15-37) 30U/L (15-37) Alanine Aminotransferase (ALT/SGPT) 70U/L (16-63) 50U/L (16-63) Alkaline Phosphatase 102U/L (46-116) 61U/L (46-116) Total Protein 8.0g/dL (6.4-8.2) 6.3g/dL (6.4-8.2) Albumin 3.6g/dL (3.4-5.0) 2.9g/dL (3.4-5.0) Albumin/Globulin Ratio 0.8 (1.0-1.7) 0.9 (1.0-1.7) Lipase 97U/L (73-393) Urine Collection Type U cath Urine Color Yellow Urine Clarity Clear Urine pH 5.0 Urine Specific [place] 1.025 Urine Protein Negativemg/dL (NEG-TRACE) Urine Glucose (UA) >=1000mg/dL (NEG) Urine Ketones (Stick) Negativemg/dL (NEG) Urine Blood Negative (NEG) Urine Nitrite Negative (NEG) Urine Bilirubin Negative (NEG) Urine Urobilinogen Dipstick 0.2mg/dL (0.2 mg/dL) Urine Leukocyte Esterase Negative (NEG) Urine RBC 0/HPF (0-2) Urine WBC 0/HPF (0-4) Urine Squamous Epithelial Cells Occ/LPF Urine Transitional Epithelial Cells Occ/LPF Urine Bacteria 0/HPF (0-FEW) Urine Hyaline Casts Moderate/HPF Urine Mucus Mod/LPF Test 11/11/16 08:16 Glucose (Fingerstick) 146mg/dL (70-99) Allergies: Coded Allergies: No Known Drug Allergies (Unverified , 11/10/16) Medications: Current Medications Medications (Trade) Dose Ordered Sig/Renee Route PRN Reason Start Time Stop Time Status Last Admin Dose Admin Sodium Chloride (Iv Sodium Chloride 0.9% 1000ml Bag) 1,000 ml @ 1,000 mls/hr 1X ONCE IV 11/10/16 16:15 11/10/16 17:14 DC 11/10/16 16:38 Fentanyl Citrate (Fentanyl 2ml Vial) 50 mcg 1X ONCE IV 11/10/16 16:45 11/10/16 16:46 DC 11/10/16 16:57 Fentanyl Citrate 50 mcg 50 mcg PRN Q2HR PRN IV PAIN 11/10/16 18:45 11/11/16 18:44 11/11/16 08:25 Sodium Chloride (Iv Sodium Chloride 0.9% 1000ml Bag) 1,000 ml @ 150 mls/hr Q6H40M IV 11/10/16 19:00 11/11/16 18:59 11/10/16 22:59 Imaging: Imaging: CT A/P w/o contrast FINDINGS Images of lower chest demonstrate mild bronchiectasis in the right lower lobe. Calcified hepatic granulomata are present. Spleen and bilateral adrenal glands are unremarkable. Gallbladder is unremarkable. Pancreas demonstrates areas of coarse calcifications, compatible with changes of chronic pancreatitis. No acute pancreatitis is identified. Bilateral kidneys and ureters are free of stone or obstruction. Urinary bladder wall may be mildly thickened measuring 5 millimeters in thickness. Aortic atherosclerosis is seen. No bowel obstruction or inflammation is identified. Appendix is without inflammation. No free air for free fluid is seen in the abdomen or pelvis. Degenerative changes are present in spine. IMPRESSION 1. No evidence urinary stone. No acute inflammatory process identified in the abdomen. 2. Question mild wall thickening of the urinary bladder, nonspecific. Correlate for any symptoms of cystitis. 3. Mild right lower lobe bronchiectasis. Right shoulder x-ray IMPRESSION: 1. Mild degenerative change. 2. No acute bony abnormality is detected. PE: GEN: NAD HEENT: Atraumatic, PERRL LUNGS: CTAB HEART: RRR ABD: NABS, S/ND/NT EXTREMITY: No edema SKIN: No rashes, no jaundice NEURO/PSYCH: A & O 3 A/P: A/P: H/o pancreatitis, likely alcohol-related -recently admitted to [facility] for this, first episode -no abd pain or n/v currently -lipase and LFTs WNL here, CT suggests chronic pancreatitis Back/flank/shoulder pain, weakness -per primary Hemoccult positive stool -denies obvious GI bleeding, Hgb 12.3 Irregular bowel habits -alternating loose and formed stools x 2 weeks CRC screen -unsure of previous colonoscopy -- Unclear his symptoms are related to pancreatitis. Will review need for additional inpatient workup (?iron profile) w/ Dr. Bourne. ENZO CHOI Nov 11, 2016 09:35
[2016-11-11 10:43] VITALS: BP 140/89
[2016-11-11] MEDS: IV NORMAL SALINE 1000ML BAG 1,000 ML IV SCH ×3 (11:06→15:10)
[2016-11-11 11:41] LABS: % SAT IRON 23 % (15-34); IRON,SERUM 60 ug/dL (65-175)
[2016-11-11 14:45] VITALS: BP 138/84
[2016-11-11 19:00] VITALS: BP 129/84
[2016-11-11] MEDS ORDERED: ONDANSETRON PF 4 MG/2 ML VIAL. IV PRN (19:00)
[2016-11-11] MEDS ORDERED: FENTANYL PF 100 MCG/2 ML VIAL. IV PRN (19:00)
[2016-11-11] MEDS ORDERED: ZOLPIDEM 5 MG TABLET. PO ONE (21:15)
[2016-11-11 23:00] VITALS: BP 158/98
[2016-11-12 07:00] VITALS: BP 146/92
[2016-11-12] MEDS: INSULIN ASPART 300 UNITS/3 ML INSULN.PEN SQ SCH ×3 (08:31→17:03)
--- NOTE | 2016-11-12 10:15 | PDOC ---
Subjective: Subjective: Diarrhea after eating (~30 min), also a couple times during the night. Low back pain, not much abd discomfort. Unsure if he was taking pancreatic enzymes from [facility]. Objective: Vital Signs: Vital Signs Date Time Temp Pulse Resp B/P Pulse Ox O2 Delivery O2 Flow Rate FiO2 11/12/16 08:00 Room Air 11/12/16 07:00 97.9 77 18 146/92 99 97.9 Labs: Laboratory Tests Test 11/11/16 10:20 11/11/16 16:30 11/11/16 21:14 11/12/16 07:23 Glucose (Fingerstick) 286mg/dL 117mg/dL 217mg/dL 172mg/dL PE: GEN: NAD LUNGS: CTAB HEART: RRR ABD: NABS, S/ND/NT NEURO/PSYCH: A & O 3 A/P: H/o pancreatitis, likely alcohol-related -lipase and LFTs WNL here, CT suggests chronic pancreatitis Post-prandial diarrhea -C Diff neg -?previous colonoscopy, heme pos stool Back pain -- Will request records from [facility]. ?start panc enzymes ENZO CHOI Nov 12, 2016 10:15
[2016-11-12 10:50] VITALS: BP 151/82
--- NOTE | 2016-11-12 14:10 | PDOC ---
PROGRESS NOTES Chief Complaint Chief Complaint cc: abdominal pain A/P Abdominal pain with hx of recent alcoholic pancreatitis Post prandial diarrhea. DM 2 with hyperglycemia HTN Plan Pain control with iv morphine NPO IV hydration [place] [facility] [place]tes labs reviwed. troponin times 2 c diff iron profile ordered Vitals Vitals Vital Signs Date Time Temp Pulse Resp B/P Pulse Ox O2 Delivery O2 Flow Rate FiO2 11/12/16 10:50 97.9 83 18 151/82 99 Room Air 97.9 Physical Exam General: Alert, Oriented X3, Cooperative Heart: Regular rate, Normal S1, Normal S2 Lungs: Clear Abdomen: Normal bowel sounds, Soft Extremities: No clubbing, Normal pulses Skin: No rashes Labs LABS Laboratory Tests Test 11/11/16 16:30 11/11/16 21:14 11/12/16 07:23 11/12/16 10:40 Glucose (Fingerstick) 117mg/dL (70-99) 217mg/dL (70-99) 172mg/dL (70-99) 258mg/dL (70-99) Assessment and Plan Assessmemt and Plan Problems Medical Problems: (1) Dehydration Status: Acute (2) Diarrhea Status: Acute (3) Renal insufficiency Status: Acute Problems: Comment Review of Relevant I have reviewed the following items karly (where applicable) has been applied. Labs Laboratory Tests Test 11/10/16 15:15 11/10/16 15:40 11/10/16 17:47 11/11/16 05:50 Stool Occult Blood Positive (NEG) Clostridium difficile Toxin (PCR) Negative (Negative) White Blood Count 7.9x10^3/uL (4.0-11.0) 5.5x10^3/uL (4.0-11.0) Red Blood Count 5.17x10^6/uL (4.30-5.70) 4.63x10^6/uL (4.30-5.70) Hemoglobin 13.9g/dL (13.0-17.5) 12.3g/dL (13.0-17.5) Hematocrit 42.5% (39.0-53.0) 39.2% (39.0-53.0) Mean Corpuscular Volume 82fL (79-100) 85fL (79-100) Mean Corpuscular Hemoglobin 27pg (25-35) 27pg (25-35) Mean Corpuscular Hemoglobin Concent 33g/dL (31-37) 32g/dL (31-37) Red Cell Distribution Width 13.2% (11.5-14.5) 13.3% (11.5-14.5) Platelet Count 172x10^3/uL (140-400) 140x10^3/uL (140-400) Neutrophils (%) (Auto) 75% (31-73) 43% (31-73) Lymphocytes (%) (Auto) 9% (24-48) 37% (24-48) Monocytes (%) (Auto) 14% (0-9) 14% (0-9) Eosinophils (%) (Auto) 2% (0-3) 6% (0-3) Basophils (%) (Auto) 0% (0-3) 0% (0-3) Neutrophils # (Auto) 5.9x10^3uL (1.8-7.7) 2.4x10^3uL (1.8-7.7) Lymphocytes # (Auto) 0.7x10^3/uL (1.0-4.8) 2.0x10^3/uL (1.0-4.8) Monocytes # (Auto) 1.1x10^3/uL (0.0-1.1) 0.8x10^3/uL (0.0-1.1) Eosinophils # (Auto) 0.1x10^3/uL (0.0-0.7) 0.3x10^3/uL (0.0-0.7) Basophils # (Auto) 0.0x10^3/uL (0.0-0.2) 0.0x10^3/uL (0.0-0.2) Sodium Level 139mmol/L (136-145) 144mmol/L (136-145) Potassium Level 4.4mmol/L (3.5-5.1) 4.8mmol/L (3.5-5.1) Chloride Level 102mmol/L (98-107) 111mmol/L (98-107) Carbon Dioxide Level 24mmol/L (21-32) 23mmol/L (21-32) Anion Gap 13 (6-14) 10 (6-14) Blood Urea Nitrogen 28mg/dL (8-26) 21mg/dL (8-26) Creatinine 1.9mg/dL (0.7-1.3) 1.1mg/dL (0.7-1.3) Estimated GFR (Cockcroft-Gault) 44.3 83.2 BUN/Creatinine Ratio 15 (6-20) 19 (6-20) Glucose Level 299mg/dL (70-99) 146mg/dL (70-99) Calcium Level 9.5mg/dL (8.5-10.1) 8.4mg/dL (8.5-10.1) Total Bilirubin 0.4mg/dL (0.2-1.0) 0.4mg/dL (0.2-1.0) Aspartate Amino Transf (AST/SGOT) 41U/L (15-37) 30U/L (15-37) Alanine Aminotransferase (ALT/SGPT) 70U/L (16-63) 50U/L (16-63) Alkaline Phosphatase 102U/L (46-116) 61U/L (46-116) Total Protein 8.0g/dL (6.4-8.2) 6.3g/dL (6.4-8.2) Albumin 3.6g/dL (3.4-5.0) 2.9g/dL (3.4-5.0) Albumin/Globulin Ratio 0.8 (1.0-1.7) 0.9 (1.0-1.7) Lipase 97U/L (73-393) Urine Collection Type U cath Urine Color Yellow Urine Clarity Clear Urine pH 5.0 Urine Specific Mullan 1.025 Urine Protein Negativemg/dL (NEG-TRACE) Urine Glucose (UA) >=1000mg/dL (NEG) Urine Ketones (Stick) Negativemg/dL (NEG) Urine Blood Negative (NEG) Urine Nitrite Negative (NEG) Urine Bilirubin Negative (NEG) Urine Urobilinogen Dipstick 0.2mg/dL (0.2 mg/dL) Urine Leukocyte Esterase Negative (NEG) Urine RBC 0/HPF (0-2) Urine WBC 0/HPF (0-4) Urine Squamous Epithelial Cells Occ/LPF Urine Transitional Epithelial Cells Occ/LPF Urine Bacteria 0/HPF (0-FEW) Urine Hyaline Casts Moderate/HPF Urine Mucus Mod/LPF Iron Level 60ug/dL (65-175) Total Iron Binding Capacity 259ug/dL (250-450) Iron Saturation 23% (15-34) Test 11/11/16 06:55 11/11/16 08:16 11/11/16 10:20 11/11/16 16:30 Clostridium difficile Toxin (PCR) Negative (Negative) Glucose (Fingerstick) 146mg/dL (70-99) 286mg/dL (70-99) 117mg/dL (70-99) Test 11/11/16 21:14 11/12/16 07:23 11/12/16 10:40 Glucose (Fingerstick) 217mg/dL (70-99) 172mg/dL (70-99) 258mg/dL (70-99) Laboratory Tests Test 11/11/16 16:30 11/11/16 21:14 11/12/16 07:23 11/12/16 10:40 Glucose (Fingerstick) 117mg/dL (70-99) 217mg/dL (70-99) 172mg/dL (70-99) 258mg/dL (70-99) Medications Current Medications Sodium Chloride (Iv Sodium Chloride 0.9% 1000ml Bag) 1,000 ml @ 1,000 mls/hr 1X ONCE IV Last administered on 11/10/16 16:38; Start 11/10/16 at 16:15; Stop 11/10/16 at 17:14; Status DC Fentanyl Citrate (Fentanyl 2ml Vial) 50 mcg 1X ONCE IV Last administered on 16:57; Start 11/10/16 at 16:45; Stop 11/10/16 at 16:46; Status DC Ondansetron HCl (Zofran) 4 mg PRN Q8HRS PRN IV NAUSEA/VOMITING; Start 11/10/16 at 18:45; Stop 11/11/16 at 18:44; Status DC Fentanyl Citrate 50 mcg 50 mcg PRN Q2HR PRN IV PAIN Last administered on 08:25; Start 11/10/16 at 18:45; Stop 11/11/16 at 18:44; Status DC Sodium Chloride (Iv Sodium Chloride 0.9% 1000ml Bag) 1,000 ml @ 150 mls/hr Q6H40M IV Last administered on 11/11/16 12:00; Start 11/10/16 at 19:00; Stop 11/11/16 at 18:59; Status DC Acetaminophen (Tylenol) 650 mg PRN Q4HRS PRN PO FEVER; Start 11/10/16 at 18:45 ; Stop 11/11/16 at 18:44; Status DC Insulin Aspart (Novolog) 0-9 UNITS TIDWMEALS SQ Last administered on 11/12/16 12:04; Start 11/11/16 at 08:00 Dextrose 12.5 gm PRN Q15MIN PRN IV SEE COMMENTS; Start 11/10/16 at 23:45 Fentanyl Citrate (Fentanyl 2ml Vial) 50 mcg PRN Q2HR PRN IV PAIN Last administered on 11/11/16 18:56; Start 11/11/16 at 19:00 Ondansetron HCl (Zofran) 4 mg PRN Q8HRS PRN IV NAUSEA/VOMITING; Start 11/11/16 at 19:00 Zolpidem Tartrate (Ambien) 5 mg 1X ONCE PO Last administered on 11/11/16 21: 49; Start 11/11/16 at 21:15; Stop 11/11/16 at 21:16; Status DC Active Scripts Active Reported Novolog (Insulin Aspart) 100 Unit/1 Ml Cartridge 3 Unit SQ TIDBFRMEAL Levemir (Insulin Detemir) 100 Unit/1 Ml Vial 20 Unit SQ QHS Vitals/I & O Vital Sign - Last 24 Hours 11/11/16 11/11/16 11/11/16 11/11/16 14:45 19:00 20:00 23:00 Temp 97.8 98.0 98.3 97.8 98.0 98.3 Pulse 80 80 74 Resp 18 18 18 B/P 138/84 129/84 158/98 Pulse Ox 98 98 99 O2 Delivery Room Air Room Air 11/12/16 11/12/16 11/12/16 07:00 08:00 10:50 Temp 97.9 97.9 97.9 97.9 Pulse 77 83 Resp 18 18 B/P 146/92 151/82 Pulse Ox 99 99 O2 Delivery Room Air Room Air Room Air Intake and Output 11/11/16 11/11/16 11/12/16 15:00 23:00 07:00 Intake Total 490 ml 240 ml 120 ml Output Total 400 ml Balance 490 ml -160 ml 120 ml LEWIS SAAVEDRA MD Nov 12, 2016 14:10
[2016-11-12] MEDS ORDERED: ALBUTEROL SULFATE 2.5 MG/3 ML NEBU. NEB PRN (14:15)
[2016-11-12] MEDS ORDERED: ACETAMINOPHEN 325 MG TABLET. PO PRN (14:15)
[2016-11-12] MEDS ORDERED: hydrALAZINE 20 MG/ML VIAL. IVP PRN (14:15)
[2016-11-12] MEDS ORDERED: ONDANSETRON PF 4 MG/2 ML VIAL. IV PRN (14:15)
[2016-11-12 14:39] VITALS: BP 162/96
--- NOTE | 2016-11-12 15:17 | RAD ---
Indication acute renal insufficiency. Hypertension. Grayscale imaging was performed targeted to the kidneys. The right kidney measures 11.4 x 5.4 x 5.3 cm and appears unremarkable. No hydronephrosis or mass is seen. The left kidney measures 11.7 x 5.9 x 5.7 cm and also appears unremarkable showing no evidence of hydronephrosis or mass. The urinary bladder appeared grossly normal. IMPRESSION: Normal morphologic appearance of the kidneys
[2016-11-12 19:00] VITALS: BP 131/83
[2016-11-12] MEDS: HYDROCODONE/APAP 5/325MG TABLET. PO PRN (21:48)
[2016-11-12 23:04] VITALS: BP 164/98
[2016-11-13] MEDS ORDERED: ACETAMINOPHEN 325 MG TABLET. PO PRN (05:54)
[2016-11-13] MEDS ORDERED: FENTANYL PF 100 MCG/2 ML VIAL. IV PRN (05:54)
[2016-11-13] MEDS ORDERED: ONDANSETRON PF 4 MG/2 ML VIAL. IV PRN (05:54)
[2016-11-13 07:00] VITALS: BP 123/81
[2016-11-13 08:24] LABS: BASO % 0 % (0-3); EOS % 4 % (0-3); HEMATOCRIT 41.5 % (39.0-53.0); HEMOGLOBIN 13.4 g/dL (13.0-17.5); LYMPH # 1.7 x10^3/uL (1.0-4.8); LYMPH % 33 % (24-48); MEAN CORPUSCULAR HEMOGLOBIN 27 pg (25-35); MEAN CORPUSCULAR HGB CONC 32 g/dL (31-37); MEAN CORPUSCULAR VOLUME 84 fL (79-100); MONO % 10 % (0-9); NEUT % 52 % (31-73); PLATELET COUNT 151 x10^3/uL (140-400); RED BLOOD COUNT 4.97 x10^6/uL (4.30-5.70); RED CELL DISTRIBUTION WIDTH 13.2 % (11.5-14.5); WHITE BLOOD COUNT 5.2 x10^3/uL (4.0-11.0)
[2016-11-13 08:34] LABS: GFR 92.9; POTASSIUM 4.2 mmol/L (3.5-5.1)
[2016-11-13] MEDS: INSULIN ASPART 300 UNITS/3 ML INSULN.PEN SQ SCH ×2 (08:59→11:31)
[2016-11-13 10:41] VITALS: BP 120/71
[2016-11-13] MEDS: HYDROCODONE/APAP 5/325MG TABLET. PO PRN (11:29)
--- NOTE | 2016-11-13 12:38 | PDOC ---
PROGRESS NOTES Chief Complaint Chief Complaint cc: abdominal pain A/P Abdominal pain with hx of recent alcoholic pancreatitis Post prandial diarrhea. DM 2 with hyperglycemia HTN Plan Pain control with iv morphine Advance diet obtain records from [facility] [place] labs reviwed. troponin times 2 normal. c diff serology negative, iron profile review, anticipated DC today based on GI recommendations. Vitals Vitals Vital Signs Date Time Temp Pulse Resp B/P Pulse Ox O2 Delivery O2 Flow Rate FiO2 11/13/16 11:29 94 Room Air 11/13/16 10:41 98.0 99 18 120/71 98.0 Physical Exam General: Alert, Oriented X3, Cooperative Heart: Regular rate, Normal S1, Normal S2 Lungs: Clear Abdomen: Normal bowel sounds, Soft Extremities: No clubbing, Normal pulses Skin: No rashes Labs LABS Laboratory Tests Test 11/12/16 16:13 11/12/16 18:00 11/12/16 20:21 11/13/16 07:13 Glucose (Fingerstick) 213mg/dL (70-99) 264mg/dL (70-99) 189mg/dL (70-99) Troponin I Quantitative < 0.017ng/mL (0.000-0.055) Test 11/13/16 07:55 White Blood Count 5.2x10^3/uL (4.0-11.0) Red Blood Count 4.97x10^6/uL (4.30-5.70) Hemoglobin 13.4g/dL (13.0-17.5) Hematocrit 41.5% (39.0-53.0) Mean Corpuscular Volume 84fL (79-100) Mean Corpuscular Hemoglobin 27pg (25-35) Mean Corpuscular Hemoglobin Concent 32g/dL (31-37) Red Cell Distribution Width 13.2% (11.5-14.5) Platelet Count 151x10^3/uL (140-400) Neutrophils (%) (Auto) 52% (31-73) Lymphocytes (%) (Auto) 33% (24-48) Monocytes (%) (Auto) 10% (0-9) Eosinophils (%) (Auto) 4% (0-3) Basophils (%) (Auto) 0% (0-3) Neutrophils # (Auto) 2.7x10^3uL (1.8-7.7) Lymphocytes # (Auto) 1.7x10^3/uL (1.0-4.8) Monocytes # (Auto) 0.5x10^3/uL (0.0-1.1) Eosinophils # (Auto) 0.2x10^3/uL (0.0-0.7) Basophils # (Auto) 0.0x10^3/uL (0.0-0.2) Sodium Level 145mmol/L (136-145) Potassium Level 4.2mmol/L (3.5-5.1) Chloride Level 109mmol/L (98-107) Carbon Dioxide Level 27mmol/L (21-32) Anion Gap 9 (6-14) Blood Urea Nitrogen 14mg/dL (8-26) Creatinine 1.0mg/dL (0.7-1.3) Estimated GFR (Cockcroft-Gault) 92.9 Glucose Level 203mg/dL (70-99) Calcium Level 9.0mg/dL (8.5-10.1) Troponin I Quantitative < 0.017ng/mL (0.000-0.055) Assessment and Plan Assessmemt and Plan Problems Medical Problems: (1) Dehydration Status: Acute (2) Diarrhea Status: Acute (3) Renal insufficiency Status: Acute Problems: Comment Review of Relevant I have reviewed the following items karly (where applicable) has been applied. Labs Laboratory Tests Test 11/11/16 16:30 11/11/16 21:14 11/12/16 07:23 11/12/16 10:40 Glucose (Fingerstick) 117mg/dL (70-99) 217mg/dL (70-99) 172mg/dL (70-99) 258mg/dL (70-99) Test 11/12/16 16:13 11/12/16 18:00 11/12/16 20:21 11/13/16 07:13 Glucose (Fingerstick) 213mg/dL (70-99) 264mg/dL (70-99) 189mg/dL (70-99) Troponin I Quantitative < 0.017ng/mL (0.000-0.055) Test 11/13/16 07:55 White Blood Count 5.2x10^3/uL (4.0-11.0) Red Blood Count 4.97x10^6/uL (4.30-5.70) Hemoglobin 13.4g/dL (13.0-17.5) Hematocrit 41.5% (39.0-53.0) Mean Corpuscular Volume 84fL (79-100) Mean Corpuscular Hemoglobin 27pg (25-35) Mean Corpuscular Hemoglobin Concent 32g/dL (31-37) Red Cell Distribution Width 13.2% (11.5-14.5) Platelet Count 151x10^3/uL (140-400) Neutrophils (%) (Auto) 52% (31-73) Lymphocytes (%) (Auto) 33% (24-48) Monocytes (%) (Auto) 10% (0-9) Eosinophils (%) (Auto) 4% (0-3) Basophils (%) (Auto) 0% (0-3) Neutrophils # (Auto) 2.7x10^3uL (1.8-7.7) Lymphocytes # (Auto) 1.7x10^3/uL (1.0-4.8) Monocytes # (Auto) 0.5x10^3/uL (0.0-1.1) Eosinophils # (Auto) 0.2x10^3/uL (0.0-0.7) Basophils # (Auto) 0.0x10^3/uL (0.0-0.2) Sodium Level 145mmol/L (136-145) Potassium Level 4.2mmol/L (3.5-5.1) Chloride Level 109mmol/L (98-107) Carbon Dioxide Level 27mmol/L (21-32) Anion Gap 9 (6-14) Blood Urea Nitrogen 14mg/dL (8-26) Creatinine 1.0mg/dL (0.7-1.3) Estimated GFR (Cockcroft-Gault) 92.9 Glucose Level 203mg/dL (70-99) Calcium Level 9.0mg/dL (8.5-10.1) Troponin I Quantitative < 0.017ng/mL (0.000-0.055) Laboratory Tests Test 11/12/16 16:13 11/12/16 18:00 11/12/16 20:21 11/13/16 07:13 Glucose (Fingerstick) 213mg/dL (70-99) 264mg/dL (70-99) 189mg/dL (70-99) Troponin I Quantitative < 0.017ng/mL (0.000-0.055) Test 11/13/16 07:55 White Blood Count 5.2x10^3/uL (4.0-11.0) Red Blood Count 4.97x10^6/uL (4.30-5.70) Hemoglobin 13.4g/dL (13.0-17.5) Hematocrit 41.5% (39.0-53.0) Mean Corpuscular Volume 84fL (79-100) Mean Corpuscular Hemoglobin 27pg (25-35) Mean Corpuscular Hemoglobin Concent 32g/dL (31-37) Red Cell Distribution Width 13.2% (11.5-14.5) Platelet Count 151x10^3/uL (140-400) Neutrophils (%) (Auto) 52% (31-73) Lymphocytes (%) (Auto) 33% (24-48) Monocytes (%) (Auto) 10% (0-9) Eosinophils (%) (Auto) 4% (0-3) Basophils (%) (Auto) 0% (0-3) Neutrophils # (Auto) 2.7x10^3uL (1.8-7.7) Lymphocytes # (Auto) 1.7x10^3/uL (1.0-4.8) Monocytes # (Auto) 0.5x10^3/uL (0.0-1.1) Eosinophils # (Auto) 0.2x10^3/uL (0.0-0.7) Basophils # (Auto) 0.0x10^3/uL (0.0-0.2) Sodium Level 145mmol/L (136-145) Potassium Level 4.2mmol/L (3.5-5.1) Chloride Level 109mmol/L (98-107) Carbon Dioxide Level 27mmol/L (21-32) Anion Gap 9 (6-14) Blood Urea Nitrogen 14mg/dL (8-26) Creatinine 1.0mg/dL (0.7-1.3) Estimated GFR (Cockcroft-Gault) 92.9 Glucose Level 203mg/dL (70-99) Calcium Level 9.0mg/dL (8.5-10.1) Troponin I Quantitative < 0.017ng/mL (0.000-0.055) Microbiology 11/12/16 Fecal Leukocyte Stain - Final, Complete Medications Current Medications Sodium Chloride (Iv Sodium Chloride 0.9% 1000ml Bag) 1,000 ml @ 1,000 mls/hr 1X ONCE IV Last administered on 11/10/16 16:38; Start 11/10/16 at 16:15; Stop 11/10/16 at 17:14; Status DC Fentanyl Citrate (Fentanyl 2ml Vial) 50 mcg 1X ONCE IV Last administered on 16:57; Start 11/10/16 at 16:45; Stop 11/10/16 at 16:46; Status DC Ondansetron HCl (Zofran) 4 mg PRN Q8HRS PRN IV NAUSEA/VOMITING; Start 11/10/16 at 18:45; Stop 11/11/16 at 18:44; Status DC Fentanyl Citrate 50 mcg 50 mcg PRN Q2HR PRN IV PAIN Last administered on 08:25; Start 11/10/16 at 18:45; Stop 11/11/16 at 18:44; Status DC Sodium Chloride (Iv Sodium Chloride 0.9% 1000ml Bag) 1,000 ml @ 150 mls/hr Q6H40M IV Last administered on 11/11/16 12:00; Start 11/10/16 at 19:00; Stop 11/11/16 at 18:59; Status DC Acetaminophen (Tylenol) 650 mg PRN Q4HRS PRN PO FEVER; Start 11/10/16 at 18:45 ; Stop 11/11/16 at 18:44; Status DC Insulin Aspart (Novolog) 0-9 UNITS TIDWMEALS SQ Last administered on 11/13/16 11:31; Start 11/11/16 at 08:00 Dextrose 12.5 gm PRN Q15MIN PRN IV SEE COMMENTS; Start 11/10/16 at 23:45 Fentanyl Citrate (Fentanyl 2ml Vial) 50 mcg PRN Q2HR PRN IV PAIN Last administered on 11/11/16 18:56; Start 11/11/16 at 19:00; Stop 11/13/16 at 05:54 ; Status DC Ondansetron HCl (Zofran) 4 mg PRN Q8HRS PRN IV NAUSEA/VOMITING; Start 11/11/16 at 19:00; Status Cancel Zolpidem Tartrate (Ambien) 5 mg 1X ONCE PO Last administered on 11/11/16 21: 49; Start 11/11/16 at 21:15; Stop 11/11/16 at 21:16; Status DC Acetaminophen (Tylenol) 325 mg PRN Q6HRS PRN PO MILD PAIN / TEMP; Start at 14:15; Stop 11/13/16 at 05:54; Status DC Acetaminophen/ Hydrocodone Bitart (Lortab 5/325) 1 tab PRN Q6HRS PRN PO MODERATE TO SEVERE PAIN Last administered on 11/13/16 11:29; Start 11/12/16 at 14:15 Hydralazine HCl (Apresoline) 10 mg PRN Q4HRS PRN IVP ELEVATED BP, SEE COMMENTS ; Start 11/12/16 at 14:15 Ondansetron HCl (Zofran) 4 mg PRN Q8HRS PRN IV NAUSEA/VOMITING; Start 11/12/16 at 14:15; Stop 11/13/16 at 05:54; Status DC Albuterol Sulfate (Ventolin Neb Soln) 2.5 mg PRN Q4HRS PRN NEB SHORTNESS OF BREATH; Start 11/12/16 at 14:15 Fentanyl Citrate (Fentanyl 2ml Vial) 50 mcg PRN Q2HR PRN IV SEVERE PAIN; Start 11/13/16 at 05:54 Acetaminophen (Tylenol) 325 mg PRN Q6HRS PRN PO MILD PAIN / TEMP; Start at 05:54 Ondansetron HCl (Zofran) 4 mg PRN Q8HRS PRN IV NAUSEA/VOMITING; Start 11/13/16 at 05:54 Active Scripts Active Reported Novolog (Insulin Aspart) 100 Unit/1 Ml Cartridge 3 Unit SQ TIDBFRMEAL Levemir (Insulin Detemir) 100 Unit/1 Ml Vial 20 Unit SQ QHS Vitals/I & O Vital Sign - Last 24 Hours 11/12/16 11/12/16 11/12/16 11/12/16 14:39 15:32 19:00 19:26 Temp 97.9 97.9 97.9 97.9 Pulse 71 86 Resp 18 20 B/P 162/96 131/83 Pulse Ox 98 100 94 94 O2 Delivery Room Air Room Air Room Air Room Air 11/12/16 11/12/16 11/12/16 11/12/16 20:00 21:48 22:48 23:04 Temp 98.4 98.4 Pulse 75 Resp 18 B/P 164/98 Pulse Ox 94 98 98 O2 Delivery Room Air Room Air Room Air Room Air 11/13/16 11/13/16 11/13/16 11/13/16 02:30 07:00 08:00 10:41 Temp 98.6 98.0 98.6 98.0 Pulse 86 99 Resp B/P 123/81 120/71 Pulse Ox 99 94 O2 Delivery Room Air Room Air Room Air Room Air 11/13/16 11:29 Pulse Ox 94 O2 Delivery Room Air Intake and Output 11/12/16 11/12/16 11/13/16 15:00 23:00 07:00 Intake Total 510 ml 850 ml Output Total 600 ml Balance -90 ml 850 ml LEWIS SAAVEDRA MD Nov 13, 2016 12:38
--- NOTE | 2016-11-13 13:29 | PDOC ---
Subjective: Subjective: Still stooling after eating. No nocturnal stooling. Tolerating PO. Back pain but no abd pain. Objective: Objective: Per RN - DC orders in, ride coming this afternoon. Reviewed imaging/records from [facility] - was taking pancrealipase. Vital Signs: Vital Signs Date Time Temp Pulse Resp B/P Pulse Ox O2 Delivery O2 Flow Rate FiO2 11/13/16 11:29 94 Room Air 11/13/16 10:41 98.0 99 18 120/71 98.0 Labs: Laboratory Tests Test 11/12/16 16:13 11/12/16 20:21 11/13/16 07:13 Glucose (Fingerstick) 213mg/dL (70-99) 264mg/dL (70-99) 189mg/dL (70-99) PE: GEN: NAD, up to chair watching tv LUNGS: CTAB HEART: RRR ABD: S/ND/NT NEURO/PSYCH: A & O 3 A/P: H/o pancreatitis, likely alcohol-related -lipase and LFTs WNL here, CT suggests chronic pancreatitis Post-prandial diarrhea -C Diff neg -?previous colonoscopy, heme pos stool Back pain -- Improved. DC okay per GI. Will restart pancreatic enzymes. D/w MARK. ENZO CHOI Nov 13, 2016 13:29
[2016-11-13] MEDS ORDERED: LIPA1CAP12 PO (14:16)
[2016-11-13] MEDS ORDERED: LIPASE/PROTEAS/AMYLAS 10/34/55 CAPSULE.DR. PO SCH (17:00)
--- NOTE | 2016-11-20 05:48 | PDOC3 ---
Discharge Summary* Admitting Diagnosis Problems Medical Problems: (1) Dehydration Status: Acute (2) Diarrhea Status: Acute (3) Renal insufficiency Status: Acute Final Diagnosis Problems Abdominal pain possible due to chronic pancreatitis. Post prandial diarrhea. resolved. DM 2 with hyperglycemia better HTN Brief Hospital Course Mr. Mackenzie is a 56 old male who presented with abdominal pain and diarrhea, imaging studies not suggestive of any acute findings, pt was evaluated by GI, Pain controlled with iv narcotics, later Pt was started on regular diet with pancreatic enzyme replacement. His pain controlled, recommend to avoid alcohol, deemed stable to go home with pcp follow up in few weeks for continued care and further workup. exam GENERAL: No apparent distress. Alert and oriented. HEENT: Head normocephalic, atraumatic. NECK: Supple LUNGS: Clear to auscultation. HEART: RRR, S1, S2 present, pulses intact Disposition/Orders: D/C to Home CONDITION AT DISCHARGE: Stable Diet: Cardiac Scheduled Insulin Aspart (Novolog) 3 UNIT SQ TIDBFRMEAL (Reported) Insulin Detemir (Levemir) 20 UNIT SQ QHS (Reported) Lipase/Protease/Amylase (Zenpep Dr 10,000 Units Capsule) 2 EACH PO TIDWMEALS ( Reported) FOLLOW UP APPOINTMENT: with PCP in 2-4 weeks. Time Spent Total time spent with patient 34 minutes for coordination of care, counseling, and education. LEWIS SAAVEDRA MD Nov 20, 2016 05:48
== END 2016-11-13 14:30 | disposition home or self-care (01) | DRG 391 ==
LOC: ER 14:50 → 5 SOUTH 18:28
PROVIDERS: ADMIT Internal Medicine Hematology & Oncology; ATTEND Internal Medicine Hematology & Oncology
DX: A08.8 Other specified intestinal infections (principal); N17.0 Acute kidney failure with tubular necrosis; K86.0 Alcohol-induced chronic pancreatitis; K58.0 Irritable bowel syndrome with diarrhea; W19.XXXA Unspecified fall, initial encounter; E11.65 Type 2 diabetes mellitus with hyperglycemia; E86.0 Dehydration; F10.20 Alcohol dependence, uncomplicated; F17.210 Nicotine dependence, cigarettes, uncomplicated; I10 Essential (primary) hypertension; J47.9 Bronchiectasis, uncomplicated; N28.9 Disorder of kidney and ureter, unspecified; Z79.4 Long term (current) use of insulin; Z82.49 Family history of ischemic heart disease and other diseases of the circulatory system; Z87.442 Personal history of urinary calculi; Z59.0 Homelessness
CPT/HCPCS: 36415; 73030; 74176; 76770; 80048; 80053; 81001; 82274; 82947; 83540; 83550; 83690; 84484; 85027; 87045; 87205; 87324; 94250; 94760; 96361; 96374; J1815; J3010; J7030; 99285-25